=== PATIENT | male | born 1950 | race Caucasian/White ===

== ENCOUNTER 2018-06-22 09:47 | Inpatient (IN) | payer OTHER ==
[~2018-06-22] VITALS: Ht 167.6 cm; Wt 82.4 kg
[~2018-06-22 09:47] MED LIST: HYDACE5 PO; HYDCHL25 PO; LISI20 PO; METO50 PO
[2018-06-22 10:10] LABS: Calcium, Ionized (POC) 1.04 mmol/L (1.10-1.46); Chloride (POC) 121 mmol/L (98-108); Creatinine (POC) 2.1 mg/dL (0.8-1.3); Glucose (ISTAT POC) 90 mg/dL (70-99); Hemoglobin (POC) 12.9 g/dL (13.5-17.5); Potassium (POC) 3.3 mmol/L (3.5-5.5); Sodium (POC) 150 mmol/L (135-148); Total CO2 (POC) 13 mmol/L (21-32)
[2018-06-22 10:17] LABS: Hematocrit 39.7 % (37.0-53.0); Hemoglobin 13.1 g/dL (13.5-17.5); Mean Corpuscular HGB 32.8 pg (26.0-34.0); Mean Corpuscular Volume 100 fL (80-100); Mean Platelet Volume 12.6 fL (9.1-12.4); Platelet Count 74 K/mm3 (150-400); RDW Coefficient Variation 15.9 % (11.7-14.2); RDW Standard Deviation 57.6 fL (35.1-46.3); Red Blood Cell Count 3.99 M/mm3 (4.30-5.90); White Blood Cell Count 7.01 K/mm3 (4.00-11.30)
[2018-06-22 10:38] LABS: Albumin, Blood 2.5 g/dL (3.4-5.0); Albumin/Globulin Ratio 0.6 (0.8-1.8); Bilirubin, Total 1.4 mg/dL (0.1-1.0); Bun/Creatinine Ratio 13.3 (12.0-20.0); Creatinine, Blood 2.11 mg/dL (0.60-1.20); Globulin, Blood 4.4 g/dL (2.2-4.0); Potassium, Blood 3.4 mmol/L (3.5-5.5); Total Protein, Blood 6.9 g/dL (6.4-8.2); Troponin I 0.036 ng/mL (0.000-0.040)
[2018-06-22 10:45] LABS: BAND PERCENT MAN 8 % (0-8); BASOPHILS PERCENT MAN 0 % (0-2); EOSINOPHILS PERCENT MAN 0 % (0-6); LYMPHOCYTES ABSOLUTE MAN 0.49 K/mm3 (0.84-5.20); LYMPHOCYTES PERCENT MAN 7 % (21-46); METAMYELOCYTE ABSOLUTE MAN 0.28 K/mm3 (0.00-0.00); METAMYELOCYTE PERCENT MAN 4 % (0-0); MONOCYTES PERCENT MAN 0 % (4-13); NEUTROPHILS ABSOLUTE MAN 6.23 K/mm3 (1.96-9.15); SEG NEUTROPHILS PERCENT MAN 81 % (41-73); TOTAL CELLS COUNTED 100
[2018-06-22 11:29] LABS: Base Excess Venous -14.8 mmol/L; Bicarbonate Venous 13.8 mmol/L (24.0-30.0); PO2 Venous 45.1 mmHg (38-42); pH Blood Venous 7.25 (7.34-7.37)
[2018-06-22] MEDS ORDERED: ALLO100 PO (11:56)
[2018-06-22 12:49] LABS: Source, Urine Catheter
[2018-06-22] MEDS ORDERED: AMLO5 PO (12:51)
[2018-06-22 13:02] LABS: Bilirubin, Urine Neg (Neg); Blood, Urine 5+ (Neg); Glucose Qualitative, Urine Neg (Neg); Ketones, Urine Neg (Neg); Leukocyte Esterase, Urine 3+ (Neg); Nitrite, Urine Neg (Neg); Protein, Urine 3+ (Neg); Urobilinogen, Urine 2+ (Normal)
[2018-06-22 13:10] LABS: Appearance, Urine Turbid (Clear); Color, Urine Yellow (P-Yellow)
[2018-06-22 13:11] LABS: White Blood Cells, Urine TNTC /hpf (0-5)
[2018-06-22 13:13] LABS: Bacteria Many /hpf; Squamous Epithelial Cells Not Seen /hpf (Few)
--- NOTE | 2018-06-22 17:58 | NUR ---
PATIENT ADMISSION THE PATEINT WAS ADMITTED FROM THE ER TO THE [facility] FLOOR, ROOM #327, AT 1615 TODAY. THE PATIENT WAS ADMITTED FOR SEPSIS, ARRIVED AFTER REPORT WAS CALLED TO THE FLOOR. THE PATIENT PRESENT A&O X3, VITALS WNL AND LUNGS THAT WERE CLEAR, BUT DIM AT THE BASES, THE PATIENT'S ADMISSION WAS COMPLETED, AND THE PATIENT WAS GIVEN A FLU SHOT. THE PATIENT IS EATING AT THIS TIME, WILL CONTINUE TO MONITOR.
[2018-06-22 19:04] LABS: Adenovirus F 40/41 Not Detected (NOT DETECT); Astrovirus Not Detected (NOT DETECT); Campylobacter Sp Not Detected (NOT DETECT); Cryptosporidium Not Detected (NOT DETECT); Cyclospora Cayetanensis Not Detected (NOT DETECT); E. Coli O157 Not Detected (NOT DETECT); Entamoeba Histolytica Not Detected (NOT DETECT); Enteroaggregative E. coli-EAEC Not Detected (NOT DETECT); Enteropathogenic E. coli-EPEC Not Detected (NOT DETECT); Enterotoxigenic E. coli-ETEC Not Detected (NOT DETECT); Giardia Lamblia Not Detected (NOT DETECT); Norovirus GI/GII Not Detected (NOT DETECT); Plesiomonas Shigelloides Not Detected (NOT DETECT); Rotavirus A Not Detected (NOT DETECT); Salmonella Sp Not Detected (NOT DETECT); Sapovirus Not Detected (NOT DETECT); Shiga Toxin-prod E. coli-STEC Not Detected (NOT DETECT); Shigella/Enteroin E. coli-EIEC Not Detected (NOT DETECT); Vibrio Cholerae Not Detected (NOT DETECT); Vibrio Sp Not Detected (NOT DETECT); Yersinia Enterocolitica Not Detected (NOT DETECT)
[2018-06-23 05:13] LABS: Hematocrit 30.2 % (37.0-53.0); Mean Corpuscular HGB 32.5 pg (26.0-34.0); Mean Corpuscular HGB Conc 33.1 g/dL (31.5-36.5); Mean Corpuscular Volume 98 fL (80-100); Platelet Count 63 K/mm3 (150-400); RDW Standard Deviation 57.8 fL (35.1-46.3); Red Blood Cell Count 3.08 M/mm3 (4.30-5.90); White Blood Cell Count 12.51 K/mm3 (4.00-11.30)
[2018-06-23 05:22] LABS: Mean Platelet Volume 13.5 fL (9.1-12.4)
[2018-06-23 05:33] LABS: Anion Gap 11 mmol/L (6-16); Blood Urea Nitrogen 36 mg/dL (8-24); Bun/Creatinine Ratio 16.1 (12.0-20.0); CO2, Blood 16 mmol/L (21-32); Calcium, Blood 7.7 mg/dL (8.5-10.1); Chloride, Blood 117 mmol/L (98-108); Creatinine, Blood 2.23 mg/dL (0.60-1.20); Glomerular Filtration Rate 31 (60-); Glucose, Blood 83 mg/dL (70-99); Potassium, Blood 4.2 mmol/L (3.5-5.5); Sodium, Blood 144 mmol/L (136-145)
[2018-06-23 05:36] LABS: BAND PERCENT MAN 24 % (0-8); BASOPHILS PERCENT MAN 0 % (0-2); EOSINOPHILS PERCENT MAN 0 % (0-6); LYMPHOCYTES ABSOLUTE MAN 1.12 K/mm3 (0.84-5.20); LYMPHOCYTES PERCENT MAN 9 % (21-46); METAMYELOCYTE PERCENT MAN 4 % (0-0); MONOCYTES ABSOLUTE MAN 0.62 K/mm3 (0.16-1.47); MONOCYTES PERCENT MAN 5 % (4-13); MYELOCYTE ABSOLUTE MAN 0.12 K/mm3 (0.00-0.00); MYELOCYTE PERCENT MAN 1 % (0-0); NEUTROPHILS ABSOLUTE MAN 10.13 K/mm3 (1.96-9.15); SEG NEUTROPHILS PERCENT MAN 57 % (41-73); TOTAL CELLS COUNTED 100
--- NOTE | 2018-06-23 06:01 | NUR ---
Rn summary: Patient is alert x2. He does seem to struggle to follow basic instructions to, for example to turn in bed so he can be changed. Pt is difficult to understand, seems to have slurred speech. Pt was found to be positive for C-Diff and is in contact isolation. Pt abdomen is rounded and nontender, with active bowel tones. He has been incontinent of stool and urine x2. Pt groin is red from incontinence. Pt has a red rash eczema like to his left neck from top of shoulder to up over his ear. Pt has had no nausia and denies pain. Pt has received IV fluids and ABX as ordered. Vital signs are stable. Call light in reach, he has not used it tonight, have monitored closely. good.
--- NOTE | 2018-06-23 18:03 | NUR ---
SHIFT SUMMARY THE PATIENT PRESENT THIS AM WITH VITALS WNL, A&O X3 AND WITH LUNGS THAT WERE CLEAR, BUT DIM AT THE BASES. THE PATIENT HAS HAD SEVERAL LOOSE STOOLS TODAY. HE CONTINUES TO TAKE VANCOMYCIN TO FIGHT THE C-DIFF. THE PATIENT HAS BEEN IN BED ALL SHIFT, BUT CONTINUES TO MOVE HIMSELF AROUND. THE PATIENT CAREGIVERS WERE IN TO VISIT TODAY, WILL CONTINUE TO MONITOR.
--- NOTE | 2018-06-24 07:58 | NUR ---
Rn summary: Patient much more alert tonight. Turning well, cooperative. Pt had one loose incontinent stool, incontinent of urine trying to use urinal also. Pt has rested between cares. Bed alarm for safety. Remains in isolation for C-diff. Pt has vision difficulties. Call light in reach.
[2018-06-24 10:49] LABS: Bun/Creatinine Ratio 22.8 (12.0-20.0); Calcium, Blood 7.6 mg/dL (8.5-10.1); Creatinine, Blood 1.93 mg/dL (0.60-1.20); Potassium, Blood 3.4 mmol/L (3.5-5.5)
--- NOTE | 2018-06-24 15:55 | NUR ---
PATIENT ALERT AND ORIENTED. WATCHING TV MOST OF DAY. LOOSE STOOLS SEEM TO HAVE SLOWED DOWN THIS SHIFT. IN ISOLATION FOR C-DIFF. DENIES PAIN. UNLABORED RESPIRATIONS. BED IN LOW POSITION. CALL LIGHT WITHIN REACH. WILL CONTINUE TO MONITOR.
--- NOTE | 2018-06-25 04:55 | NUR ---
VSS, AFEBRILE, A/O, SLEPT WELL. 20G L AC, 18G L WRIST, LR @ 125 ML/HR, INCONT AT TIMES, 1 PA W/FWW, VISION PROBLEMS, ECZEMA,
[2018-06-25 05:44] LABS: Hematocrit 28.1 % (37.0-53.0); Hemoglobin 9.4 g/dL (13.5-17.5); Mean Corpuscular HGB 32.3 pg (26.0-34.0); Mean Corpuscular HGB Conc 33.5 g/dL (31.5-36.5); Mean Corpuscular Volume 97 fL (80-100); Platelet Count 58 K/mm3 (150-400); RDW Coefficient Variation 16.1 % (11.7-14.2); RDW Standard Deviation 56.7 fL (35.1-46.3); Red Blood Cell Count 2.91 M/mm3 (4.30-5.90); White Blood Cell Count 5.58 K/mm3 (4.00-11.30)
[2018-06-25 05:50] LABS: Mean Platelet Volume 13.1 fL (9.1-12.4)
[2018-06-25 06:09] LABS: Bun/Creatinine Ratio 23.4 (12.0-20.0); Calcium, Blood 7.6 mg/dL (8.5-10.1); Creatinine, Blood 1.58 mg/dL (0.60-1.20); Potassium, Blood 3.6 mmol/L (3.5-5.5)
[2018-06-25 06:13] LABS: BAND PERCENT MAN 2 % (0-8); BASOPHILS PERCENT MAN 0 % (0-2); EOSINOPHILS ABSOLUTE MAN 0.33 K/mm3 (0.00-0.68); EOSINOPHILS PERCENT MAN 6 % (0-6); LYMPHOCYTES ABSOLUTE MAN 1.56 K/mm3 (0.84-5.20); LYMPHOCYTES PERCENT MAN 28 % (21-46); MONOCYTES ABSOLUTE MAN 0.11 K/mm3 (0.16-1.47); MONOCYTES PERCENT MAN 2 % (4-13); NEUTROPHILS ABSOLUTE MAN 3.57 K/mm3 (1.96-9.15); SEG NEUTROPHILS PERCENT MAN 62 % (41-73); TOTAL CELLS COUNTED 100
--- NOTE | 2018-06-25 09:51 | NUR ---
TALKED TO ABOUT P.T. EVAL. OK TO ORDER.
--- NOTE | 2018-06-25 19:05 | NUR ---
PATIENT ALERT AND ORIENTED. MAX 2 PERSON ASSIST TO LIFT. UNLABORED RESPIRATIONS. B.M'S DECREASED ON THIS SHIFT. GOOD APPETITE WITH PATIENT EATTING ITEMS BROUGHT IN BY FRIENDS. IV PATENT. BED IN LOW POSITION. CALL LIGHT WITHIN REACH. REPORT TO NIGHT RN
--- NOTE | 2018-06-26 05:11 | NUR ---
VSS, AFEBRILE, A/O BUT CONFUSED AT TIMES, INCONT, 18G L WRIST, HEAVY 2PA TO STAND, VERY WEAK - SAFER TO USE THE LIFT, ORAL VANCO FOR C-DIFF, LR @ 25 ML/HR. PMHX: FOUDN DOWN, CABG, VISION ISSUES, ECZEMA. PLEASANT AND COOPERATIVE
[2018-06-26 05:18] LABS: BASOPHILS ABSOLUTE AUTO 0.02 K/mm3 (0.00-0.23); BASOPHILS PERCENT AUTO 0 % (0-2); EOSINOPHILS ABSOLUTE AUTO 0.29 K/mm3 (0.00-0.68); EOSINOPHILS PERCENT AUTO 6 % (0-6); Hematocrit 26.7 % (37.0-53.0); Hemoglobin 8.8 g/dL (13.5-17.5); IMMATURE GRAN ABSOLUTE AUTO 0.04 K/mm3 (0.00-0.10); IMMATURE GRAN PERCENT AUTO 1 % (0-1); LYMPHOCYTES ABSOLUTE AUTO 1.36 K/mm3 (0.84-5.20); LYMPHOCYTES PERCENT AUTO 28 % (21-46); MONOCYTES ABSOLUTE AUTO 0.53 K/mm3 (0.16-1.47); MONOCYTES PERCENT AUTO 11 % (4-13); Mean Corpuscular HGB 32.1 pg (26.0-34.0); Mean Corpuscular Volume 97 fL (80-100); Mean Platelet Volume 12.3 fL (9.1-12.4); NEUTROPHILS ABSOLUTE AUTO 2.62 K/mm3 (1.96-9.15); NEUTROPHILS PERCENT AUTO 54 % (41-73); Platelet Count 67 K/mm3 (150-400); RDW Coefficient Variation 16.1 % (11.7-14.2); RDW Standard Deviation 57.5 fL (35.1-46.3); Red Blood Cell Count 2.74 M/mm3 (4.30-5.90); White Blood Cell Count 4.86 K/mm3 (4.00-11.30)
[2018-06-26 05:48] LABS: Bun/Creatinine Ratio 22.9 (12.0-20.0); Calcium, Blood 7.6 mg/dL (8.5-10.1); Creatinine, Blood 1.31 mg/dL (0.60-1.20); Potassium, Blood 3.6 mmol/L (3.5-5.5)
--- NOTE | 2018-06-26 18:20 | NUR ---
PT AO AND COOPERATIVE OF CARE. WAS ABLE TO BE UP IN HIS CHAIR TODAY, AND WAS A HEAVY TWO PERSON TRANSFER BACK TO BED. PT RESTING IN BED AT THIS TIME NO DISTRESS NOTED.
--- NOTE | 2018-06-27 05:29 | NUR ---
VSS, AFEBRILE, A/O BUT CONFUSED AT TIMES, 18G L WRIST, LR @ 125 ML/HR, INCONT OF B/B, ORAL VANCO FOR C-DIFF, STOOLS ARE SOFT BUT FORMED, 2 PA OR USE LIFT, PT'S LEGS ARE VERY WEAK, PMHX: FOUND DOWN, CABG, VISION PROBLEMS, ECZEMA. PLACEMENT ISSUES
--- NOTE | 2018-06-27 17:20 | NUR ---
SHIFT SUMMARY PT ALEXIS, AYESHAO X4 THOUGH CONFUSED AT TIMES. PT TEMP 99.4-99.6 TODAY. PT REFUSED TYLENOL. NO OTHER CHANGES THIS SHIFT. NURSE CALLED CAREGIVER TO UPDATE HER THAT PER IRONER MACHINE NOTE, PT CANNOT BE TRANSFERRED TO SNF UNTIL 72 HOURS AFTER LOOSE STOOL. PT ALSO AWARE. PT REFUSED PHYSICAL THERAPY, SEE NOTE. BED IN LOW POSITION, CALL LIGHT WITHIN REACH.
--- NOTE | 2018-06-28 02:34 | NUR ---
SHIFT SUMMARY PT RESTING QUIETLY HF AT START OF SHIFT; WATCHING TV. INCONTINENT OF BOWEL AND BLADDER. PT CLEANED AND CHANGED. REPOSITIONED. IN CONTACT ISO FOR C-DIFF. PT ADMITTED FOR SEPSIS AND METABOLIC ACIDOSIS; RESOLVED. WAITING TO BE D/C'D TO REHAB WHEN STOOLS REMAIN FORMED FOR 72 HRS. PER REPORT, PT W/C BOUND R/T DECONDITIONING. FOUND DOWN AT HOME. CONFUSED AT TIMES. HX OF HTN, CABG, AND VISION LOSS. PT HAS BEEN PLEASANT AND CO-OP WITH CARE. DENIED FURTHER NEEDS. CALL LT IN REACH. ABLE TO MAKE NEEDS KNOWN.
[2018-06-28 05:43] LABS: Anion Gap 7 mmol/L (6-16); Blood Urea Nitrogen 22 mg/dL (8-24); Bun/Creatinine Ratio 20.4 (12.0-20.0); CO2, Blood 19 mmol/L (21-32); Calcium, Blood 7.3 mg/dL (8.5-10.1); Chloride, Blood 119 mmol/L (98-108); Creatinine, Blood 1.08 mg/dL (0.60-1.20); Glomerular Filtration Rate >60 (60-); Glucose, Blood 108 mg/dL (70-99); Potassium, Blood 3.5 mmol/L (3.5-5.5); Sodium, Blood 145 mmol/L (136-145)
--- NOTE | 2018-06-28 17:17 | NUR ---
SHIFT SUMMARY PT AXO, PLEASANT AND COOPERATIVE WITH CARE. PT'S BMS ARE PASTY. PT CONTINUES TO BE INCONTINENT OF BOWEL AND BLADDER. IV PATENT AND SALINE LOCKED. PT HAS SEVERE SWELLING IN HIS ABDOMEN AND 3+ EDEMA TO BLE. DR MANZANARES AWARE. VSS, NO ACUTE CHANGES THIS SHIFT. PT COMPLAINS OF BILATERAL ANKLE PAIN BUT REFUSES PAIN MEDICATION. PT DENIES SOB AND NV. BED IN LOW POSITION, CALL LIGHT WITHIN REACH. SIT TO STAND LIFT USED TO MOVE PT INTO SHOWER THIS SHIFT.
--- NOTE | 2018-06-29 03:48 | NUR ---
SHIFT SUMMARY PT RESTING QUIETLY, WATCHING TV AT START OF SHIFT. PLEASANT. HAD ATTEMPTED TO USE URINAL IN BED, BUT HAS DIFFICULTY WITH ATTENDS AND SPILLING ON BED LINENS. PT CLEANED AND CHANGED. YEAST IN DELORIS AREA AND INNER THIGHS WAS NOTICEABLY MUCH WORSE TONIGHT, THAN LAST NIGHT. DR LAWRENCE NOTIFIED FOR NYSTATIN CREAM. WHEN OBTAINED FROM PHARMACY, PT WAS CLEANED AGAIN AND MEDICATION APPLIED. NO BM'S TO PRESENT THIS SHIFT. BLE'S VERY SWOLLEN WITH SM AMT REDNESS TO RLE. PT VERY WEAK AND DECONDITIONED, ESPECIALLY LE'S. NO FURTHER CHANGES TO PRESENT THIS SHIFT. CALL LT IN REACH.
[2018-06-29 06:20] LABS: Anion Gap 9 mmol/L (6-16); Blood Urea Nitrogen 22 mg/dL (8-24); Bun/Creatinine Ratio 17.9 (12.0-20.0); CO2, Blood 20 mmol/L (21-32); Calcium, Blood 7.4 mg/dL (8.5-10.1); Chloride, Blood 116 mmol/L (98-108); Creatinine, Blood 1.23 mg/dL (0.60-1.20); Glomerular Filtration Rate >60 (60-); Glucose, Blood 100 mg/dL (70-99); Potassium, Blood 3.4 mmol/L (3.5-5.5); Sodium, Blood 145 mmol/L (136-145)
--- NOTE | 2018-06-29 19:08 | NUR ---
NO ACUTE CHANGES THIS SHIFT. PATIENT USING BEDPAN AND URINAL. IMMODIUM AVAILABLE FOR LOOSE STOOL. CALL LIGHT IN REACH, PATIENT CALLS APPROPRIATELY
[2018-06-30 05:34] LABS: Anion Gap 10 mmol/L (6-16); Blood Urea Nitrogen 23 mg/dL (8-24); CO2, Blood 19 mmol/L (21-32); Calcium, Blood 7.3 mg/dL (8.5-10.1); Chloride, Blood 115 mmol/L (98-108); Creatinine, Blood 1.21 mg/dL (0.60-1.20); Glomerular Filtration Rate >60 (60-); Glucose, Blood 101 mg/dL (70-99); Potassium, Blood 3.3 mmol/L (3.5-5.5); Sodium, Blood 144 mmol/L (136-145)
--- NOTE | 2018-06-30 06:17 | NUR ---
ALTERATIONS TAILOR SUMMARY PT AAOX3 COOPERATIVE WITH CARE, DENIES PAIN, N/V, SOB, TAKING PO VANCO. NO ACUTE DISTRESS. SLEPT MOST OF NIGHT. USES URINAL IN BED, VITAL SIGNS STABLE. WILL CONTINUE TO MONITOR.
--- NOTE | 2018-06-30 17:54 | NUR ---
PATIENT GIVEN IMMODIUM THIS SHIFT PER PATIENT REQUEST. EATING WELL. BOWEL MOVEMENTS ARE SOFT FORMED. PATIENT REFUSED TO TAKE SECOND DOSE OF POTASSIUM. CALLS APPROPRIATELY. WILL CONTINUE TO MONITOR
--- NOTE | 2018-07-01 03:50 | NUR ---
SUMMARY NO ACUTE CHANGES NOTED THROUGH THE NIGHT. PT REMAINS A&O X4, ON BEDREST. HE HAS SLEPT WITH NO PROBLEMS. PO VANCO GIVEN PER EMAR. PT DENIES PAIN. NO STOOLS NOTED. VSS. CALL LIGHT IN REACH, WCTM AT THIS TIME
[2018-07-01 05:17] LABS: Anion Gap 9 mmol/L (6-16); Blood Urea Nitrogen 24 mg/dL (8-24); Bun/Creatinine Ratio 19.2 (12.0-20.0); CO2, Blood 19 mmol/L (21-32); Calcium, Blood 7.3 mg/dL (8.5-10.1); Chloride, Blood 118 mmol/L (98-108); Creatinine, Blood 1.25 mg/dL (0.60-1.20); Glomerular Filtration Rate >60 (60-); Glucose, Blood 114 mg/dL (70-99); Potassium, Blood 3.5 mmol/L (3.5-5.5); Sodium, Blood 146 mmol/L (136-145)
[2018-07-01] MEDS ORDERED: Acetaminophen325 M1 PO (11:39)
[2018-07-01] MEDS ORDERED: VANC125 PO (11:40)
[2018-07-01] MEDS ORDERED: POLY500 PO (11:40)
[2018-07-01] MEDS ORDERED: SACC250C PO (11:42)
[2018-07-01] MEDS ORDERED: Oyster Shell C500 MG PO (11:42)
--- NOTE | 2018-07-01 17:09 | NUR ---
PT DISCHARGED PT VERBALIZED UNDERSTANDING OF THE DC INSTRUCTIONS, PTS RADIOLOGY MANAGER AND THE PT WERE ANGRY WITH THE HOSPITAL STAFF AT DISCHARGE THE DC PLAN WAS CHANGED FROM FACILITY TO HOME, [facility] THE PHARMACY THERE ACKNOWLEDGED THAT THE PT WOULD BE ABLE TO PICK HIS PERSCIPTION UP TONIGHT, THE PT WAS TAKEN OUT VIA WHEELCHAIR TO THE [facility] THE RADIOLOGY MANAGER TOLD THE TICKER MAINTAINER THAT SHE WOULD TAKE THE PT OUT SO THAT WE WOULDNT BE PUT OUT, FOR NO REASON AT ALL, THE PT APPEARED TO BE BREATHING EASILY AT DISCHARGE, A 2 PERSON ASSIST UP TO THE WHEELCHAIR
== END 2018-07-01 17:05 | disposition home or self-care (01) | DRG 871 ==
LOC: ER 09:47 → ERHOLD 12:47 → MEDS 12:47 → ENPENDDIS 07-01 10:57 → MEDS 07-01 17:05
PROVIDERS: Emergency Medicine; ADMIT Hospitalist
DX: A41.9 Sepsis, unspecified organism (principal); G93.41 Metabolic encephalopathy; A04.72 Enterocolitis due to Clostridium difficile, not specified as recurrent; E87.1 Hypo-osmolality and hyponatremia; E87.2 Acidosis; I10 Essential (primary) hypertension; R19.7 Diarrhea, unspecified; A41.89 Other specified sepsis; R65.20 Severe sepsis without septic shock; N28.9 Disorder of kidney and ureter, unspecified
CPT/HCPCS: 36415; 36416; 51701; 70450; 71045; 80047; 80048; 80053; 80202; 81001; 82330; 82803; 83605; 84484; 85014; 85025; 87040; 87077; 87086; 87186; 87507; 90686; 93005; 93010; 96367; 96375; 97110; 97162; 97530; 99285-25; J1940; J2543; J3370; J7120

== ENCOUNTER 2020-02-05 10:15 | Inpatient (IN) | payer OTHER, MEDICARE ==
[~2020-02-05] VITALS: Ht 175.3 cm; Wt 67.1 kg
[~2020-02-05 10:15] MED LIST changes: +AMLO5 PO; -METO50 PO; +Oyster Shell C500 MG PO; +POLY500 PO; +VANC125 PO
[2020-02-05 11:12] LABS: BASOPHILS ABSOLUTE AUTO 0.05 K/mm3 (0.00-0.23); BASOPHILS PERCENT AUTO 1 % (0-2); EOSINOPHILS ABSOLUTE AUTO 0.35 K/mm3 (0.00-0.68); EOSINOPHILS PERCENT AUTO 6 % (0-6); Hematocrit 38.2 % (37.0-53.0); Hemoglobin 11.7 g/dL (13.5-17.5); IMMATURE GRAN ABSOLUTE AUTO 0.02 K/mm3 (0.00-0.10); IMMATURE GRAN PERCENT AUTO 0 % (0-1); LYMPHOCYTES ABSOLUTE AUTO 1.45 K/mm3 (0.84-5.20); LYMPHOCYTES PERCENT AUTO 26 % (21-46); MONOCYTES ABSOLUTE AUTO 0.47 K/mm3 (0.16-1.47); MONOCYTES PERCENT AUTO 8 % (4-13); Mean Corpuscular HGB 30.5 pg (26.0-34.0); Mean Corpuscular HGB Conc 30.6 g/dL (31.5-36.5); Mean Corpuscular Volume 100 fL (80-100); Mean Platelet Volume 10.4 fL (9.1-12.4); NEUTROPHILS ABSOLUTE AUTO 3.31 K/mm3 (1.96-9.15); NEUTROPHILS PERCENT AUTO 59 % (41-73); Platelet Count 162 K/mm3 (150-400); RDW Standard Deviation 50.5 fL (35.1-46.3); Red Blood Cell Count 3.84 M/mm3 (4.30-5.90); White Blood Cell Count 5.65 K/mm3 (4.00-11.30)
[2020-02-05 11:33] LABS: Albumin, Blood 2.7 g/dL (3.4-5.0); Albumin/Globulin Ratio 0.5 (0.8-1.8); Bilirubin, Total 0.7 mg/dL (0.1-1.0); Bun/Creatinine Ratio 25.8 (12.0-20.0); Calcium, Blood 8.9 mg/dL (8.5-10.1); Creatinine, Blood 1.59 mg/dL (0.60-1.20); Globulin, Blood 5.2 g/dL (2.2-4.0); Potassium, Blood 3.7 mmol/L (3.5-5.5); Total Protein, Blood 7.9 g/dL (6.4-8.2)
[2020-02-05] MEDS ORDERED: METO50ER PO (13:52)
[2020-02-05] MEDS ORDERED: ALLO100 PO (13:53)
[2020-02-05] MEDS ORDERED: Acetaminophen325 M1 PO (13:53)
[2020-02-05] MEDS ORDERED: LOSARTAN POTAS100 M1 PO (13:54)
[2020-02-05] MEDS ORDERED: MELA3 PO (13:55)
[2020-02-05] MEDS ORDERED: AMLO5 PO (13:55)
[2020-02-05] MEDS ORDERED: Vitamin D2000 UNIT PO (13:56)
[2020-02-05] MEDS ORDERED: Vitamin B-121000 MCG PO (13:56)
[2020-02-05] MEDS ORDERED: DOCU100 PO (13:57)
[2020-02-05] MEDS ORDERED: FOLI1 PO (13:57)
[2020-02-05] MEDS ORDERED: HYDCHL25 PO (13:58)
[2020-02-05] MEDS ORDERED: RIFA550T2 PO (13:59)
[2020-02-05] MEDS ORDERED: LACT PO (13:59)
[2020-02-05] MEDS ORDERED: B-1100 M1 PO (14:00)
[2020-02-05] MEDS ORDERED: ZINC220 PO (14:00)
[2020-02-05] MEDS ORDERED: TAMS.4ER PO (14:00)
[2020-02-05] MEDS ORDERED: SENN187 PO (14:01)
[2020-02-05] MEDS ORDERED: CALCITRATE200 M1 PO (14:04)
--- NOTE | 2020-02-05 18:03 | NUR ---
ADMISSION PT ADMITED TO UNIT AT APROX 1644 FROM ER. PT SMELLS OF URINE, GIVEN BED BATH BY STAFF. PT HAS WOUNDS/SORES TO L BUTTOCK-PICTURES TAKEN AND IN CHART. PT'S LEGS DRAWN UP TO CHEST, SOME SWELLING TO L HIP. ORTHO CONSULT CALLED BY ER MD. PLAN FOR NPO MIDNIGHT AND OR TOMORROW.
--- NOTE | 2020-02-06 04:38 | NUR ---
PATIENT HAS SLEPT MOST OF THE NIGHT. HE ASKED FOR AND RECEIVED PAIN MEDICATION ONCE, WITH GOOD PAIN CONTROL. HE WAKES ORIENTED AND COOPERATIVE WITH ALL CARE. RT LEG WITH HIP AND KNEE CONTRACTURES. HE STATES THAT HE HAS NOT BEEN ABLE TO STRIAGHTEN THAT LEG IN A LONG TIME. NPO AFTER MIDNIGHT EXCEPT FOR SIPS OF H2O WITH MEDICATIONS. CALL LIGHT WITHIN REACH, ENSURED PATIENT UNDERSTANDS THE BUTTON TO PUSH FOR HELP.
[2020-02-06 04:47] LABS: International Normalized Ratio 1.04; Prothrombin Time Results 11.1 Sec (9.7-11.5)
[2020-02-06 04:53] LABS: Bun/Creatinine Ratio 25.5 (12.0-20.0); Calcium, Blood 8.5 mg/dL (8.5-10.1); Creatinine, Blood 1.49 mg/dL (0.60-1.20); Potassium, Blood 3.4 mmol/L (3.5-5.5)
--- NOTE | 2020-02-06 13:33 | NUR ---
PATIENT TO DAY SURGERY AT THIS TIME. SPOKE WITH PATIENT'S PCP, MAGGIE NATION AT [facility] TODAY AND GAINED SOME INSIGHT ON PATIENT'S HX. PATIENT HAS BEEN DEEMED TO HAVE LEGAL CAPACITY TO MAKE DECISIONS RE: HIS LIVING ARRANGEMENTS AND CARE. HE HAS REFUSED TO RESIDE IN A FACILITY OR FOSTER HOME. SPOKE WITH MILTON GUNTER RE: D/C PLAN.
--- NOTE | 2020-02-06 14:07 | NUR ---
History, Chart, Medications and Allergies reviewed before start of procedure. Lungs clear T/O to Auscultation. Patient confirms NPO status and agrees with scheduled surgery. Pre-Op teaching done. Pt verbalizes understanding.
--- NOTE | 2020-02-06 16:15 | NUR ---
PATIENT RETURNED TO ROOM FROM PACU. AWAKE, ORIENTED. DENIES PAIN, NAUSEA, CP, SOB. VSS. R HIP WITH AQUACEL DRESSINGS X 3, D&I; CIRC CHECKS WNL. WIGGLES TOES. LS DECREASED LLL, OTHERWISE CLEAR. ON RA. HRR. CONT TO MONITOR.
--- NOTE | 2020-02-06 18:50 | NUR ---
PATIENT TOLERATED DINNER, APPETITE GOOD. VSS. PO PAIN AUTO BODY SHOP MANAGER. DRESSINGS D&I, DENIES N/T. WILL REPORT TO AYANA BAÑUELOS.
--- NOTE | 2020-02-07 04:03 | NUR ---
PATIENT MEDICATION WITH PO NARCOTICS FOR PAIN IN HIS RT ANKLE/FOOT. VERY PLEASANT, EATING AND DRINKING WELL. USING CALL LIGHT APPROPRIATELY.
[2020-02-07 05:00] LABS: Hematocrit 27.9 % (37.0-53.0); Hemoglobin 9.4 g/dL (13.5-17.5); Mean Corpuscular HGB 30.8 pg (26.0-34.0); Mean Corpuscular HGB Conc 33.7 g/dL (31.5-36.5); Mean Platelet Volume 11.3 fL (9.1-12.4); Platelet Count 164 K/mm3 (150-400); RDW Coefficient Variation 13.5 % (11.7-14.2); Red Blood Cell Count 3.05 M/mm3 (4.30-5.90)
[2020-02-07 05:01] LABS: Mean Corpuscular Volume 92 fL (80-100)
--- NOTE | 2020-02-07 05:08 | NUR ---
PATIENT HAS BEEN AWAKE FOR A FEW HOURS, NEEDS HELP CHANGING THE CHANNEL TO THE ONE HE WANTS TO WATCH. HE IS NO LONGER HAVING ANY PAIN IN HIS RT FOOT. BOTH HEALS HAVE BEEN FLOATED ALL SHIFT. NO ACUTE CHANGES. MOST PROXIMAL AQUACEL HAS SMALL SANGUINOUS AMOUNT OF DRAINAGE.
[2020-02-07 05:32] LABS: Albumin, Blood 2.2 g/dL (3.4-5.0); Anion Gap 7 mmol/L (6-16); Blood Urea Nitrogen 39 mg/dL (8-24); Bun/Creatinine Ratio 23.4 (12.0-20.0); CO2, Blood 23 mmol/L (21-32); Calcium, Blood 8.2 mg/dL (8.5-10.1); Chloride, Blood 112 mmol/L (98-108); Creatinine, Blood 1.67 mg/dL (0.60-1.20); Glomerular Filtration Rate 43 (60-); Glucose, Blood 180 mg/dL (70-99); Phosphorus, Blood 1.9 mg/dL (2.5-4.9); Potassium, Blood 4.2 mmol/L (3.5-5.5); Sodium, Blood 142 mmol/L (136-145)
--- NOTE | 2020-02-07 18:46 | NUR ---
SHIFT SUMMARY PT HAD A R HIP REPAIR. PAIN HAS BEEN MANAGED WITH NORCO. PT WORKED WITH THERAPY, HE WAS A 2 PERSON MAX ASSIST WITH TRANSFERS THIS EVENING. PT IS WHEELCHAIR BOUND AT BASELINE; ALTHOUGH HE IS A POOR HISTORIAN AND IS UNABLE TO TELL WHY HE IS WHEELCHAIR BOUND. PT HAS AND ABRASION AND POSSIBLE PRESSURE INJURY TO HIS L HIP. HE HAS A SECOND PRESSURE INJURY TO HIS LEFT HIP, ALLYVEN DRESSINGS CHANGED OVER BOTH PRESSURE INJURIES. VSS. WILL MONITOR UNTIL REPORT TO ONCOMING RN.
--- NOTE | 2020-02-08 05:22 | NUR ---
SHIFT SUMMARY POD2 R FEM NECK FX, BP ELEVATED, GAVE PRN HYDRALAZINE PER EMAR WHICH HELPED LOWER BP. PT BED BOUND, REPORTS BEING UNABLE TO WALK AND USING WHEELCHAIR AT BASELINE. DENIES PAIN, USES CALL LIGHT APPROPRIATLEY BUT SOMETIMES BUMPS CALL BUTTON ACCIDENTLY. CONNOLLY IN PLACE DRAINING YELLOW URINE W/ SCANT AMT OF SEDIMENT, NO NOTED KIDNEY HX. HYDROCELL DRESSING INTACT W/ SCANT DRAINAGE ON RIGHT HIP, 2 DRESSING ON L HIP FOR PRESSURE INJURIES PRESENT ON ADMIT PER REPORT. TOLERATES PO, SWALLOWS MEDICATIONS W/O DIFFICULTY. WILL CONTINUE TO MONITOR AND REPORT TO ONCOMING DAY RN.
[2020-02-08 09:53] LABS: Albumin, Blood 2.2 g/dL (3.4-5.0); Anion Gap 8 mmol/L (6-16); Blood Urea Nitrogen 30 mg/dL (8-24); Bun/Creatinine Ratio 22.4 (12.0-20.0); CO2, Blood 22 mmol/L (21-32); Calcium, Blood 7.9 mg/dL (8.5-10.1); Chloride, Blood 115 mmol/L (98-108); Creatinine, Blood 1.34 mg/dL (0.60-1.20); Glomerular Filtration Rate 56 (60-); Glucose, Blood 112 mg/dL (70-99); Phosphorus, Blood 2.4 mg/dL (2.5-4.9); Potassium, Blood 3.6 mmol/L (3.5-5.5); Sodium, Blood 145 mmol/L (136-145)
[2020-02-08] MEDS ORDERED: GUAI600T33 PO (10:14)
--- NOTE | 2020-02-08 15:43 | NUR ---
BRITT ZIMMER CONTACTED FOR DVT PROPHYLAXIS ORDERS. PT HAS JONATAN ARAIZA AND SCD'S. BRITT ORDERED ASPIRIN FOR CHEMICAL PROPHYLAXIS.
--- NOTE | 2020-02-08 15:56 | NUR ---
SHIFT SUMMARY PT IS POD #2 FROM A R HIP PINNING WITH DR. GARCÍA. HIS PAIN IS MANAGED WITH NORCO. SOME OF PT'S HOME MEDICATIONS WERE RESTARTED PER DR. HILL. PT'S CONNOLLY CATHETER WAS REMOVED THIS AFTERNOON, AWAITING VOID. VSS. WILL CONTINUE TO MONITOR.
[2020-02-09 04:58] LABS: Albumin, Blood 2.3 g/dL (3.4-5.0); Anion Gap 6 mmol/L (6-16); Blood Urea Nitrogen 29 mg/dL (8-24); Bun/Creatinine Ratio 21.2 (12.0-20.0); CO2, Blood 26 mmol/L (21-32); Calcium, Blood 8.1 mg/dL (8.5-10.1); Chloride, Blood 113 mmol/L (98-108); Creatinine, Blood 1.37 mg/dL (0.60-1.20); Glomerular Filtration Rate 54 (60-); Glucose, Blood 100 mg/dL (70-99); Phosphorus, Blood 2.7 mg/dL (2.5-4.9); Potassium, Blood 4.3 mmol/L (3.5-5.5); Sodium, Blood 145 mmol/L (136-145)
--- NOTE | 2020-02-09 06:21 | NUR ---
SHIFT SUMMARY LYING IN SEMI FOWLERS WITH EYES OPEN. AAO X3 WITH OCCASIONAL CONFUSION NOTED. URINE ADEQUATE. PARTIAL BATH AND LINEN CHANGE COMPLETED AFTER INCONTINENT VOID, TOLERATED WELL. DENIES FURTHER NEEDS OR WANTS AT THIS TIME. SAFETY MEASURES IN PLACE. WILL CONTINUE TO MONITOR AND GIVE HAND OFF TO ONCOMING SHIFT USING SBAR DURING BEDSIDE REPORT.
--- NOTE | 2020-02-09 16:30 | NUR ---
THERAPY RECENTLY WORKING WITH PT.
--- NOTE | 2020-02-09 16:47 | NUR ---
SHIFT SUMMARY PT BEEN EATING AND DRINKING, VOIDING. PT HAD BM TODAY. PT WORKED WITH THERAPY. DR BEEN TO SEE PT. ALARM IN PLACE. PT BEEN ASSISTED WITH ADL'S PRN. PT BEEN CLEANED UP TODAY, MEPILEX DRESSINGS CHANGED. TEST BORER HELPER ASSISTING WITH PLACEMENT.
--- NOTE | 2020-02-09 18:22 | NUR ---
DR AWARE OF PT NOT ABLE TO GO TO SNF TODAY. OILING MACHINE OPERATOR BEEN ASSISTING WITH CARE.
--- NOTE | 2020-02-10 05:46 | NUR ---
SHIFT SUMMARY POD 4 S/P LEFT HIP NAILING, AQUACEL APPEARS CDI. PAIN MANAGED WITH REPOSITIONING, ICE, AND PO MEDICATIONS PER EMAR. DRESSING TO RIGHT HIP IS C/D/I. PT APPEARS TO BE CHARO ADA DIET. IS VOIDING, ATTENDS CHANGED PER EMAR. NO ACUTE CHANGES THIS SHIFT. WILL CONT TO MONITOR AND GIVE REPORT TO ONCOMING REdyN.
--- NOTE | 2020-02-10 11:04 | NUR ---
OT HERE TO WORK WITH PT.
--- NOTE | 2020-02-10 17:00 | NUR ---
SHIFT SUMMARY PT EATING AND DRINKING, VOIDING. PT WORKED WITH THERAPY TODAY. PT UP TO CHAIR TODAY WITH TAB ALARM IN PLACE. PT USING CALL LIGHT. PT BEEN ASSISTED WITH ADL'S PRN. PT BEEN MED ORDERED AND PRN. DEMETRIUS NAAYK BEEN TO SEE PT AND TALKED WITH BELT NOTCHER EARLIER TODAY.
--- NOTE | 2020-02-10 18:32 | NUR ---
PT BACK TO BED WITH MULT ASSIST, ALARM IN PLACE. PT REPORTS COMF WHEN BACK TO BED.
--- NOTE | 2020-02-11 06:00 | NUR ---
SHIFT SUMMARY NO ACUTE CHANGES THIS SHIFT. AQUACEL DRESSINGS TO RIGHT HIP C/D/I. MEPILEX TO LEFT HIP CDI. PT MEDICATED 2X FOR PAIN WITH 1 TAB. REPOSITIONED CHARO, PT ABLE TO REPOSITION SELF SOME IN BED. REQUIRES FREQUENT HIP PRECAUTION REMINDERS. USES URINAL BUT HAS "ACCIDENTS" WITH USING IT AT TIMES. FULL BED BATH AND LINEN CHANGE TONIGHT. PT CURRENTLY WATCHING TV IN BED WITH CALL LIGHT IN REACH. WILL CONT TO MONITOR PT FOR CHANGES. PLAN TO WORK WITH THERAPY. WILL CONT TO MONITOR AND GIVE REPORT TO ONCOMING RN.
--- NOTE | 2020-02-11 17:55 | NUR ---
SUMMARY PT HAS BEEN SITTING IN CHAIR MUCH OF SHIFT. PT CALM, COOPERATIVE. MEDICATED X1 FOR RIGHT HIP PAIN AND REPORTS PAIN IS IN TOLERABLE AVRIL FROM [facility] IN TO SEE PATIENT AND TELLS ME SHE AND THE PATIENT CALLED DETROIT SOCIAL SECURITY OFFICE AND HAVE BEEN IN CONTACT WITH PERSON TO ASSIST WITH MEDICARE PAPERWORK.
--- NOTE | 2020-02-12 05:34 | NUR ---
SHIFT SUMMARY POD 6 R HIP PINNING AA04, COOPERATIVE WITH CARE TODAY. MEDICATED FOR PAIN ONCE PT STATED RELIEF. PT REPOSITIONING IN BED WITH SOME ASSISTANCE. TOLERATING PO. DRESSING CDI. PT CURRENTLTY AWAITING PLACEMENT.
[2020-02-12 05:35] LABS: Albumin, Blood 2.3 g/dL (3.4-5.0); Anion Gap 6 mmol/L (6-16); Blood Urea Nitrogen 27 mg/dL (8-24); Bun/Creatinine Ratio 20.8 (12.0-20.0); CO2, Blood 25 mmol/L (21-32); Calcium, Blood 8.5 mg/dL (8.5-10.1); Chloride, Blood 113 mmol/L (98-108); Glomerular Filtration Rate 58 (60-); Glucose, Blood 96 mg/dL (70-99); Phosphorus, Blood 3.1 mg/dL (2.5-4.9); Potassium, Blood 4.3 mmol/L (3.5-5.5); Sodium, Blood 144 mmol/L (136-145)
--- NOTE | 2020-02-12 16:39 | NUR ---
NOTIFIED DR BURTON THAT PATIENT HAS REFUSED LACTULOSE X 3 DAYS. NO NEW ORDERS.
--- NOTE | 2020-02-12 17:57 | NUR ---
SHIFT SUMMARY PATIENT W/O CHANGES THIS SHIFT. UP TO CHAIR W/STAND AND PIVOT (2 PERSON ASSIST.) NOW BACK TO BED. DRESSING TO R HIP CHANGED. DRESSINGS TO BUTTOCKS CHANGED EARLIER IN SHIFT. PAIN BAGGAGEMASTER THIS AM, HAS DENIED NEED FOR PAIN MED THIS AFTERNOON. SPOKE WITH PCP FROM [facility], GAVE UPDATE.
--- NOTE | 2020-02-13 04:36 | NUR ---
SHIFT SUMMARY POD 7 R HIP REPAIR. AA0X4. PT COOPERATIVE WITH CARE. REPOSITIONS WELL AND HELPS WITH ROLLING. MEDICATED FOR PAIN X1. DRESSINGS CDI. PLAN IS TO CONTINUE AWAITING PLACEMENT.
[2020-02-13 04:47] LABS: BASOPHILS ABSOLUTE AUTO 0.02 K/mm3 (0.00-0.23); BASOPHILS PERCENT AUTO 0 % (0-2); EOSINOPHILS PERCENT AUTO 6 % (0-6); Hematocrit 28.9 % (37.0-53.0); Hemoglobin 9.4 g/dL (13.5-17.5); IMMATURE GRAN ABSOLUTE AUTO 0.03 K/mm3 (0.00-0.10); IMMATURE GRAN PERCENT AUTO 1 % (0-1); LYMPHOCYTES ABSOLUTE AUTO 1.51 K/mm3 (0.84-5.20); LYMPHOCYTES PERCENT AUTO 30 % (21-46); MONOCYTES ABSOLUTE AUTO 0.55 K/mm3 (0.16-1.47); MONOCYTES PERCENT AUTO 11 % (4-13); Mean Corpuscular HGB 30.1 pg (26.0-34.0); Mean Corpuscular HGB Conc 32.5 g/dL (31.5-36.5); Mean Corpuscular Volume 93 fL (80-100); Mean Platelet Volume 10.6 fL (9.1-12.4); NEUTROPHILS ABSOLUTE AUTO 2.66 K/mm3 (1.96-9.15); NEUTROPHILS PERCENT AUTO 53 % (41-73); Platelet Count 222 K/mm3 (150-400); RDW Coefficient Variation 14.2 % (11.7-14.2); RDW Standard Deviation 47.9 fL (35.1-46.3); Red Blood Cell Count 3.12 M/mm3 (4.30-5.90); White Blood Cell Count 5.07 K/mm3 (4.00-11.30)
[2020-02-13 05:09] LABS: Albumin, Blood 2.3 g/dL (3.4-5.0); Anion Gap 6 mmol/L (6-16); Blood Urea Nitrogen 30 mg/dL (8-24); Bun/Creatinine Ratio 20.7 (12.0-20.0); CO2, Blood 23 mmol/L (21-32); Calcium, Blood 8.4 mg/dL (8.5-10.1); Chloride, Blood 111 mmol/L (98-108); Creatinine, Blood 1.45 mg/dL (0.60-1.20); Glomerular Filtration Rate 51 (60-); Glucose, Blood 96 mg/dL (70-99); Phosphorus, Blood 3.4 mg/dL (2.5-4.9); Potassium, Blood 4.5 mmol/L (3.5-5.5); Sodium, Blood 140 mmol/L (136-145)
--- NOTE | 2020-02-13 18:34 | NUR ---
SHIFT SUMMARY PATIENT UP TO CHAIR AND WORKED WITH PT TODAY. PO PAIN CAPACITY PLANNING ENGINEER PER ORDER. EATING WELL. USING URINAL, INCONTINENT AT TIMES. VSS. R HIP DRESSING D&I. NO ACUTE CHANGES.
--- NOTE | 2020-02-14 04:56 | NUR ---
SHIFT SUMMARY POD#8. AAOX4. DISCOMFORT CONTROLLED WITH 1 NORCO X2 THIS SHIFT. NO NAUSEA/EMESIS. DRESSING TO RIGHT HIP C/D/I. PPP, DENIES N/T BLE, MOVES TOES WELL. WEAKNESS TO ALL EXTREMITIES, NO ACUTE CHANGE PER PT PT IS WHEELCHAIR BOUND AT BASELINE. GOOD PO INTAKE + OUTPUT. INCONTINENT OF URINE AT TIMES, ATTENDS + LINENS CHANGED PRN. MEPILEX TO LEFT HIP FOR WOUND C/D/I. PT RESTING WELL AT THIS TIME WITH CALL LIGHT IN REACH.
--- NOTE | 2020-02-14 07:34 | NUR ---
DR MAYORGATRATE RECENTLY IN TO SEE PT.
--- NOTE | 2020-02-14 16:54 | NUR ---
SHIFT SUMMARY PT EATING AND DRINKING, VOIDING. PT ATTENDS CHANGED PRN. PT WORKED WITH THERAPY AND BEEN UP TO CHAIR. PT WITH TAB ALARM IN PLACE. PT ARMANDO ASSISTED WITH ADL'S PRN. DR MAYORGATRATE TO SEE PT THIS AM. PT BEEN REPOSITIONED MULT TIMES TODAY.
--- NOTE | 2020-02-15 04:57 | NUR ---
SHIFT SUMMARY POD#9. AAOX4. PT RESTED WELL T/O NIGHT. DISCOMFORT CONTROLLED WITH PAIN PILL. NO NAUSEA/EMESIS. DRESSING TO RIGHT HIP C/D/I. DRESSING TO LEFT LATERAL HIP C/D/I. PT REPOSITIONS SELF WELL IN BED, NEEDS ENCOURAGEMENT AT TIMES. INCONTINENT IN ATTENDS. NO ACUTE CHANGES OVER NIGHT. PT CURRENTLY RESTING WITH CALL LIGHT IN REACH.
[2020-02-15 06:06] LABS: Hematocrit 30.6 % (37.0-53.0); Hemoglobin 9.9 g/dL (13.5-17.5); Mean Corpuscular HGB 30.1 pg (26.0-34.0); Mean Corpuscular HGB Conc 32.4 g/dL (31.5-36.5); Mean Corpuscular Volume 93 fL (80-100); Mean Platelet Volume 10.5 fL (9.1-12.4); Platelet Count 233 K/mm3 (150-400); RDW Coefficient Variation 14.2 % (11.7-14.2); RDW Standard Deviation 48.4 fL (35.1-46.3); Red Blood Cell Count 3.29 M/mm3 (4.30-5.90); White Blood Cell Count 4.98 K/mm3 (4.00-11.30)
[2020-02-15 06:22] LABS: Albumin, Blood 2.4 g/dL (3.4-5.0); Anion Gap 5 mmol/L (6-16); Blood Urea Nitrogen 34 mg/dL (8-24); Bun/Creatinine Ratio 27.2 (12.0-20.0); CO2, Blood 24 mmol/L (21-32); Chloride, Blood 110 mmol/L (98-108); Creatinine, Blood 1.25 mg/dL (0.60-1.20); Glomerular Filtration Rate >60 (60-); Glucose, Blood 96 mg/dL (70-99); Phosphorus, Blood 3.3 mg/dL (2.5-4.9); Potassium, Blood 4.6 mmol/L (3.5-5.5); Sodium, Blood 139 mmol/L (136-145)
--- NOTE | 2020-02-15 16:25 | NUR ---
Shift summary Patient is a 2 person assist to the recliner chair. Pain controlled with [place]. Patient tolerating regular diet. Dressings CDI. Patient uses call light appropiately. VSS. Call light within patient reach.
--- NOTE | 2020-02-16 04:19 | NUR ---
SHIFT SUMMARY POD#10. AAOX4. DISCOMFORT CONTROLLED WITH 1 NORCO X2 THIS SHIFT. NO NAUSEA/EMESIS. DRESSING TO RIGHT HIP C/D/I. MEPILEX TO LEFT HIP C/D/I. PT REPOSITIONS SELF WELL IN BED, NEEDS ENCOURAGEMENT AT TIMES. INCONTINENT IN ATTENDS. GOOD PO INTAKE + OUTPUT. PT RESTING WELL THIS AM WITH CALL LIGHT IN REACH. AWAITING SNF PLACEMENT.
--- NOTE | 2020-02-16 17:53 | NUR ---
SHIFT SUMMARY PAIN HAS BEEN MANAGED WITH NORCO THIS SHIFT. PT IS A 1-2 PERSON MAX ASSIST FOR TRANSFERS. PT IS STILL WAITING FOR PLACEMENT. PT IS EXPECTING A PHONE CONVERSATION TO RENEW HIS SOCIAL SECURITY BENEFITS. VSS. WILL MONITOR UNTIL REPORT TO ONCOMING RN.
--- NOTE | 2020-02-17 04:18 | NUR ---
SHIFT SUMMARY AA0X4, PT DENIES PAIN DURING SHIFT. REPOSITIONED PT T/O SHIFT. HE MOVES SELF BACK TO LEFT HIP SHORTLY AFTER. PT FREQUENTLY REMOVING DEPENDS. INC OF BLADDER DURING SHIFT. DRESSINGS REMAIN CDI. NO DRAINAGE NOTED. PLAN TO CONTINUE AWAITING PLACEMENT FOR PT.
--- NOTE | 2020-02-17 18:21 | NUR ---
SHIFT SUMMARY POD11. PT IS HERE WAITING FOR PLACEMENT. A PHYSICAL THERAPIST CAME IN TODAY FROM THE ME TO ASSIST PT IN A PHONE CALL WITH SOCIAL SECURITY TO REINSTATE MEDICARE BENEFITS. DURING BED BATH, WE CHANGED HIS SURG DRESSING. WOUND AND INC APPEARED HEALING AND DRY. PT C/O PAIN AFTER ADLS, 01/25. MANAGED W/ PAIN MED (NORCO). HE USES URINAL, ADVISE TO USE CALL LIGHT FOR ASSISTANCE TO AVOID URINE LEAKING ON BED.
--- NOTE | 2020-02-18 05:23 | NUR ---
SHIFT SUMMARY NO ACUTE CHANGES THIS SHIFT. AQUACEL TO RIGHT HIP APPEARS CDI. MEPILEX TO LEFT HIP AND COCCYX ALSO APPEAR CDI. REPORTS PAIN AT CHARO T/O SHIFT. USES URINAL, REQUIRES FREQUENT ASSISTANCE TO PREVENT LEAKAGE ON SELF OR BEDDING. HX OF BLADDER INCONT. REPOSITIONED OFTEN, PT FREQUENTLY REPOSITIONS SELF TO LEFT SIDE. AWAITING PLACEMENT. PT IS CURRENTLY RESTING IN BED WITH CALL LIGHT IN HAND WHILE WATCHING TV. WILL CONT TO MONITOR AND GIVE REPORT TO ONCOMING RN.
--- NOTE | 2020-02-18 19:44 | NUR ---
SHIFT SUMMARY PT A&OX4, VSS, UP TO CHAIR TODAY WITH PHYSICAL THERAPY, 3 PP BED/CHAIR TRANSFER AT SHIFT CHANGE. CHARO PO, DENIES N&V. PAIN MANAGED WITH 5 MG NORCO. VOIDING WELL USING URINAL. REPORT PROVIDED TO DEE BAÑUELOS.
--- NOTE | 2020-02-19 03:42 | NUR ---
SHIFT SUMMARY NO ACUTE CHANGES THIS SHIFT. AQUACEL TO RIGHT HIP AND MEPILEX TO COCCYX/ LEFT HIP CDI. ABLE TO ADJUST SELF IN BED. USING URINAL WITH INCONT VOIDS. CHARO PO INTAKE. APPEARS TO HAVE SLEPT T/O MOST OF SHIFT. PT IS CURRENTLY RESTING IN BED WITH CALL LIGHT IN REACH. WILL CONT TO MONITOR AND GIVE REPORT TO ONCOMING RN.
--- NOTE | 2020-02-19 18:07 | NUR ---
SHIFT SUMMARY PATIENT WORKED WITH PT/OT TODAY WITH GOOD PROGRESS PER STAFF. MEDICATED X 2 FOR R HIP PAIN. R HIP AND MEPILEX DRESSINGS C/D/I. TOLERAITNG PO. VOIDING. NO ACUTE CHANGES. AWAITING PLACEMENT.
--- NOTE | 2020-02-20 03:47 | NUR ---
SHIFT SUMMARY PT HAS BEEN A/O X3, USING CALL LIGHT APPROPRIATELY. PT HAS BEEN REPOSITIONED SEVERAL TIMES DURING THE SHIFT. USES URINAL IND TO VOID. PT HAS BEEN IN PLEASANT MOOD DURING THE NIGHT AND WAS ABLE TO GET SOME REST. DRESSING TO R HIP CDI. PAIN MANAGED WITH PO PAIN MED PER ORDERS. NO ACUTE CHANGES OVERNIGHT.
--- NOTE | 2020-02-20 18:05 | NUR ---
SHIFT SUMMARY NO ACUTE CHANGES THIS SHIFT. UP TO CHAIR TODAY. MEDICATED FOR R HIP PAIN X 2. TOLERATING PO. PRUNE JUICE GIVEN FOR NO BM X 2 DAYS. VOIDING. R HIP DRESSING AND COCCYX DRESSINGS D&I. WILL REPORT TO AYANA BAÑUELOS.
--- NOTE | 2020-02-21 17:36 | NUR ---
SHIFT SUMMARY PT AO3 WITH NO ACUTE CHANGES. PT HAD BM THIS AM. HE HAS C/O PAIN ON RLE, MEDICATED W/ NORCO AT 1647. 12/25 PAIN DENIES N/T. PER DR LAWRENCE, MEDICARE HAS BEEN APPROVED BUT STILL WAITING ON PLACEMENT. PT ALSO DENIES N/V, HAS GOOD APPETITE. DRESSINGS ARE CDI.
--- NOTE | 2020-02-22 17:14 | NUR ---
SHIFT SUMMARY PT HAS GOOD APPETITE. HE C/O PAIN INTERITTENTLY, PAIN MED GIVEN PER MD ORDER. HE IS STILL WAITING FOR PLACEMENT. NO ACUTE CHANGES. HE HAD 1 BM TODAY.
--- NOTE | 2020-02-23 06:33 | NUR ---
SUMMARY PT IN NO ACUTE DISTRESS TONIGHT. POTENTIAL TRANSFER TO SNF THIS WEEK.
--- NOTE | 2020-02-23 16:27 | NUR ---
Shift summary No acute changes this shift. VSS. Pain controlled with [place]. Patient worked with physical therapy this shift. Patient tolerating PO intake. Awaiting discharge plan. Call light within patient reach.
--- NOTE | 2020-02-24 04:09 | NUR ---
SHIFT SUMMARY NO ACUTE CHANGES THIS SHIFT. ATTENDS CHANGED PRN R/T PT ATTEMPTING TO USE URINAL IND. MEDICATED FOR PAIN X1 WITH 1 TAB NORCO. PT ABLE TO REPOSITION SELF IN BED, REQUIRES ASSISTANCE WITH BOOSTING. PT APPEARS TO BE RESTING COMFORTABLY IN BED WITH EYES CLOSED AND CALL LIGH IN REACH. AWAITING PLACEMENT WILL CONT TO MONITOR AND GIVE REPORT TO ONCOMING RN.
[2020-02-24 05:21] LABS: Hematocrit 29.5 % (37.0-53.0); Hemoglobin 9.4 g/dL (13.5-17.5); Mean Corpuscular HGB 29.8 pg (26.0-34.0); Mean Corpuscular HGB Conc 31.9 g/dL (31.5-36.5); Mean Corpuscular Volume 94 fL (80-100); Platelet Count 214 K/mm3 (150-400); RDW Coefficient Variation 13.6 % (11.7-14.2); RDW Standard Deviation 46.6 fL (35.1-46.3); Red Blood Cell Count 3.15 M/mm3 (4.30-5.90); White Blood Cell Count 4.94 K/mm3 (4.00-11.30)
[2020-02-24 05:45] LABS: Bun/Creatinine Ratio 34.3 (12.0-20.0); Creatinine, Blood 1.4 mg/dL (0.60-1.20); Potassium, Blood 5.6 mmol/L (3.5-5.5)
--- NOTE | 2020-02-24 14:34 | NUR ---
REPORT GIVEN TO JOSE. DISCHARGE PACKET PREPARED BY CARE MANAGEMENT. MANAGEMENT REP SCHEDULED APPROX. AT 1600.
== END 2020-02-24 16:57 | DRG 480 ==
LOC: ER 10:15 → SURS 13:52 → ERHOLD 13:52 → SURS 16:29
PROVIDERS: Emergency Medicine; Family Medicine; Nurse Practitioner Acute Care; Orthopaedic Surgery; ADMIT Internal Medicine
PROC: 0QS634Z Reposition Right Upper Femur with Internal Fixation Device, Percutaneous Approach (ICD-10-PCS; principal; 2020-02-06 15:15)
DX: S72.141A Displaced intertrochanteric fracture of right femur, initial encounter for closed fracture (principal); E43 Unspecified severe protein-calorie malnutrition; Z68.1 Body mass index [BMI] 19.9 or less, adult; G93.40 Encephalopathy, unspecified; N17.9 Acute kidney failure, unspecified; Z20.828 Contact with and (suspected) exposure to other viral communicable diseases; D63.8 Anemia in other chronic diseases classified elsewhere; E83.39 Other disorders of phosphorus metabolism; F03.90 Unspecified dementia, unspecified severity, without behavioral disturbance, psychotic disturbance, mood disturbance, and anxiety; I25.10 Atherosclerotic heart disease of native coronary artery without angina pectoris; K72.90 Hepatic failure, unspecified without coma; I12.9 Hypertensive chronic kidney disease with stage 1 through stage 4 chronic kidney disease, or unspecified chronic kidney disease; Z87.891 Personal history of nicotine dependence; Z95.1 Presence of aortocoronary bypass graft; Z99.3 Dependence on wheelchair; N18.3 Chronic kidney disease, stage 3 (moderate); L89.152 Pressure ulcer of sacral region, stage 2; Z66 Do not resuscitate
CPT/HCPCS: 36415; 73502; 73700; 80048; 80053; 80069; 82140; 85025; 85027; 85610; 93005; 93010; 96360; 96361; 97110; 97112; 97162; 97166; 97530; 97535; 99284-25; A9270-GY; C1713; C1769; J0690; J1100; J1650; J1885; J2250; J2405; J2704; J3010; J3480; J7030; J7050; J7060; J7120; U0002

== ENCOUNTER 2020-06-23 08:09 | Emergency (ER) | payer OTHER, MEDICARE ==
[~2020-06-23] VITALS: Ht 180.3 cm; Wt 80.7 kg
[~2020-06-23 08:09] MED LIST changes: +ALLO100 PO; +Acetaminophen325 M1 PO; +B-1100 M1 PO; +CALCITRATE200 M1 PO; +DOCU100 PO; +FOLI1 PO; +GUAI600T33 PO; +LACT PO; +LOSARTAN POTAS100 M1 PO; +MELA3 PO; +METO50ER PO; +RIFA550T2 PO; +SENN187 PO; +TAMS.4ER PO; +Vitamin B-121000 MCG PO; +Vitamin D2000 UNIT PO; +ZINC220 PO
[2020-06-23] MEDS ORDERED: Monodox100 MG PO (09:41)
== END 2020-06-23 11:37 | disposition home or self-care (01) ==
LOC: ER 08:09
DX: S00.11XA Contusion of right eyelid and periocular area, initial encounter (principal); J01.90 Acute sinusitis, unspecified; B96.89 Other specified bacterial agents as the cause of diseases classified elsewhere; I10 Essential (primary) hypertension; Z95.1 Presence of aortocoronary bypass graft; Z79.899 Other long term (current) drug therapy; Z87.891 Personal history of nicotine dependence; W01.10XA Fall on same level from slipping, tripping and stumbling with subsequent striking against unspecified object, initial encounter
CPT/HCPCS: 70450; 72125; 99284-25

== ENCOUNTER 2020-08-28 13:14 | Emergency (ER) | payer OTHER, MEDICARE ==
[~2020-08-28] VITALS: Ht 180.3 cm; Wt 77.1 kg
[~2020-08-28 13:14] MED LIST changes: +Monodox100 MG PO
[2020-08-28] MEDS ORDERED: CEPH500 PO (13:43)
[2020-08-28] MEDS ORDERED: Mupirocin22 GM TOP (13:43)
[2020-08-28] MEDS ORDERED: Bactrim Ds Tab1 EACH PO (13:43)
== END 2020-08-28 14:47 | disposition home or self-care (01) ==
LOC: ER 13:14
DX: H00.031 Abscess of right upper eyelid (principal); I10 Essential (primary) hypertension; Z95.1 Presence of aortocoronary bypass graft; Z79.899 Other long term (current) drug therapy; Z87.891 Personal history of nicotine dependence
CPT/HCPCS: 99283; A9270

== ENCOUNTER 2021-01-05 17:52 | Inpatient (IN) | payer OTHER, MEDICARE ==
[~2021-01-05] VITALS: Ht 172.7 cm; Wt 90.7 kg
[~2021-01-05 17:52] MED LIST changes: +Bactrim Ds Tab1 EACH PO; +CEPH500 PO; +Mupirocin22 GM TOP
[2021-01-05 18:10] LABS: BASOPHILS ABSOLUTE AUTO 0.03 K/mm3 (0.00-0.23); BASOPHILS PERCENT AUTO 1 % (0-2); EOSINOPHILS ABSOLUTE AUTO 0.66 K/mm3 (0.00-0.68); EOSINOPHILS PERCENT AUTO 11 % (0-6); Hematocrit 30.5 % (37.0-53.0); Hemoglobin 9.7 g/dL (13.5-17.5); IMMATURE GRAN ABSOLUTE AUTO 0.01 K/mm3 (0.00-0.10); IMMATURE GRAN PERCENT AUTO 0 % (0-1); LYMPHOCYTES ABSOLUTE AUTO 1.65 K/mm3 (0.84-5.20); LYMPHOCYTES PERCENT AUTO 28 % (21-46); MONOCYTES ABSOLUTE AUTO 0.38 K/mm3 (0.16-1.47); MONOCYTES PERCENT AUTO 7 % (4-13); Mean Corpuscular HGB Conc 31.8 g/dL (31.5-36.5); Mean Corpuscular Volume 97 fL (80-100); Mean Platelet Volume 11.3 fL (9.1-12.4); NEUTROPHILS ABSOLUTE AUTO 3.16 K/mm3 (1.96-9.15); NEUTROPHILS PERCENT AUTO 54 % (41-73); Platelet Count 190 K/mm3 (150-400); RDW Coefficient Variation 15.6 % (11.7-14.2); RDW Standard Deviation 55.3 fL (35.1-46.3); Red Blood Cell Count 3.13 M/mm3 (4.30-5.90); White Blood Cell Count 5.89 K/mm3 (4.00-11.30)
[2021-01-05 18:46] LABS: Alanine Aminotransfer (ALT/SGP 17 U/L (12-78); Albumin, Blood 2.4 g/dL (3.4-5.0); Albumin/Globulin Ratio 0.5 (0.8-1.8); Alk Phos 123 U/L (50-136); Anion Gap 6 mmol/L (6-16); Aspartate Aminotrans (AST/SGOT 21 U/L (12-37); Bilirubin, Total 0.3 mg/dL (0.1-1.0); Blood Urea Nitrogen 34 mg/dL (8-24); Bun/Creatinine Ratio 22.7 (12.0-20.0); CO2, Blood 22 mmol/L (21-32); Calcium, Blood 8.5 mg/dL (8.5-10.1); Chloride, Blood 120 mmol/L (98-108); Globulin, Blood 5.2 g/dL (2.2-4.0); Glomerular Filtration Rate 46 (60-); Glucose, Blood 152 mg/dL (70-99); Potassium, Blood 3.8 mmol/L (3.5-5.5); Sodium, Blood 148 mmol/L (136-145); Total Protein, Blood 7.6 g/dL (6.4-8.2); Troponin I <0.015 ng/mL (0.000-0.040)
[2021-01-05] MEDS ORDERED: Aspir 8181 MG PO (19:38)
[2021-01-05] MEDS ORDERED: METO100ER PO (19:39)
[2021-01-05] MEDS ORDERED: MIRALAX17 GM PO (19:39)
[2021-01-06] MEDS ORDERED: ZINC OXIDE57 GM TOP (01:15)
[2021-01-06] MEDS ORDERED: ZINC220 (01:19)
[2021-01-06 05:18] LABS: BASOPHILS ABSOLUTE AUTO 0.03 K/mm3 (0.00-0.23); BASOPHILS PERCENT AUTO 1 % (0-2); EOSINOPHILS ABSOLUTE AUTO 0.34 K/mm3 (0.00-0.68); EOSINOPHILS PERCENT AUTO 7 % (0-6); Hematocrit 26.1 % (37.0-53.0); Hemoglobin 8.6 g/dL (13.5-17.5); IMMATURE GRAN ABSOLUTE AUTO 0.01 K/mm3 (0.00-0.10); IMMATURE GRAN PERCENT AUTO 0 % (0-1); LYMPHOCYTES ABSOLUTE AUTO 1.09 K/mm3 (0.84-5.20); LYMPHOCYTES PERCENT AUTO 21 % (21-46); MONOCYTES ABSOLUTE AUTO 0.39 K/mm3 (0.16-1.47); MONOCYTES PERCENT AUTO 7 % (4-13); Mean Corpuscular HGB 31.2 pg (26.0-34.0); Mean Corpuscular Volume 95 fL (80-100); Mean Platelet Volume 11.1 fL (9.1-12.4); NEUTROPHILS ABSOLUTE AUTO 3.41 K/mm3 (1.96-9.15); NEUTROPHILS PERCENT AUTO 65 % (41-73); Platelet Count 202 K/mm3 (150-400); RDW Coefficient Variation 15.1 % (11.7-14.2); RDW Standard Deviation 52.6 fL (35.1-46.3); Red Blood Cell Count 2.76 M/mm3 (4.30-5.90); White Blood Cell Count 5.27 K/mm3 (4.00-11.30)
[2021-01-06 05:48] LABS: Albumin, Blood 2.2 g/dL (3.4-5.0); Albumin/Globulin Ratio 0.4 (0.8-1.8); Bilirubin, Total 0.5 mg/dL (0.1-1.0); Calcium, Blood 8.5 mg/dL (8.5-10.1); Creatinine, Blood 1.52 mg/dL (0.60-1.20); Globulin, Blood 4.9 g/dL (2.2-4.0); Potassium, Blood 3.6 mmol/L (3.5-5.5); Total Protein, Blood 7.1 g/dL (6.4-8.2)
--- NOTE | 2021-01-06 06:16 | NUR ---
0615 PT REMOVED TELE AND REFUSES TO PUT IT BACK ON. PROVIDER NOTIFIED.
--- NOTE | 2021-01-06 13:42 | NUR ---
Spoke with Caremanager David and discussed case. Dr Lara reporting family may benefit from discussion regarding goals of care. Pt resting in bed with GRADING SUPERVISOR assisting Pt with eating. Pt is A&OX1. Pt denies pain at this time. Ended visit to allow Pt to continue eating. Called and spoke with Jud at [facility]. Jud reports Pt is a DNR and will fax Palliative Care copy of POLST. Jud reports at baseline Pt is orientated and able to make his own decisions. She reports Pt has been making choices and decisions that are questionable lately. Pt has not been getting out of bed for quite some time. Pt requires assistance with bathing, dressing, transfers, and is incontinent of bowel and bladder. Pt is able to feed himself at baseline. Jud reports plan to have social services designee assess Pt for higher level of care. Inquired about any next of kin with Jud reporting only contact information is for Marie Kim who is listed as someone who handles Pt's bills and Daphne who is a caregiver for Pt in the past. Called and left a message with both Marie Kim and Daphne Ponce with request for a return phone call. [facility]ed [facility] a request for copy of advanced directive. Spoke with Dr Lara and relayed staff at [facility] report of Pt being a DNR. Changed Pt's code status to DNR per V/O from Dr Lara. Palliative Care will continue to attempt to reach potential decision makers and will make supportive visits.
--- NOTE | 2021-01-06 15:28 | NUR ---
Ethics consultation service provided. Clarification sought regarding the procedural and legal propriety of forgoing aggressive clinical measures and making a hospice election on behalf of the principal, contigent on the treatment wishes expressed in the principals advance care planning instruments, without collecting input from the Healthcare Manager Process (HCR) listed in his directive. Chart notes reviewed, conversations facilitated with alves stakeholders, and ACPI's examined. Predicated on findings from the aforementioned exercise, it is resolved that we are ethically bound to submit to the medical preferences stipulated and delimited in the POLST and the Advance Directive. To exceed the standards of care contained therein would be an assault on the dignity of the patient and constitute overtreatment. Despite the conspicuous nature of the principals wishes, out of common decency and respect, a good morris effort should still be made to notify the HCR of the principals unfortunate condition and impending demise. Thank you for this consult. Sidney Billingsley Th.D.
--- NOTE | 2021-01-06 15:44 | NUR ---
Case Conference Note Received fax from [facility] with Pt's POLST and Advanced Directive. Pt's wishes on POLST form are DNR and Comfort Care Only. Pt's Advanced Directive lists his ex Amira as healthcare professional healthcare representative. No phone number listed just last known address. Spoke with Pt's friend Amanda Ponce who reports when she was caring for Pt she attempted several times to locate and contact Pt's ex with no success. Daphne reports Pt has been showing significant decline in the recent past with care needs increasing. Daphne reports Pt's team at the [facility], staff at [facility], and Pt's [employer] casemanager are in the process of assessing him for a higher level of care. Discussed POLST form with Daphne appearing to be in agreement that Pt should focus on just comfort. Spoke with Sidney Billingsley from Ethics and discussed case. Sidney recommends follwoing Pt's wishes listed on POLST form. Please see Sidney Billingsley's note for further detail. Spoke with Dr Lara and discussed case. Placed comfort care order, comfort care order set, and D/C maintenance medications per V/O from Dr Lara. Palliative Care will remain available for symptom management.
--- NOTE | 2021-01-06 16:58 | NUR ---
SHIFT SUMMARY PT IS AO TO SELF WITH INCREASING FATIGUE. PT DENIES PAIN, N/V. PT EXHIBITS SOB WITH EXERTION. PT WORKED WITH PT/OT. APPETITE IS MODERATE. PT DID NOT HAVE VISITORS THIS SHIFT. PT HAD AN ECHO THIS AM. PT TRANSITIONED TO COMFORT CARE THIS SHIFT PER POLST AND DIRECTIVE WISHES. PT IS IN BED, CALL LIGHT IN REACH, BED IN LOW POSITION.
--- NOTE | 2021-01-07 04:05 | NUR ---
SHIFT SUMMARY A/O TO SELF AND PLACE. PT ANXIOUS DURING BEGINNING OF SHIFT, MEDICATED PER EMAR. APPEARED TO SLEEP T/O THE NIGHT. ORAL CARE AND Q2 TURNS PRN. NO ACUTE CHANGES AT THIS TIME. BED IN LOWEST POSITION WITH CALL LIGHT IN REACH. WILL CONTINUE TO MONITOR AND REPORT TO ONCOMING RN.
--- NOTE | 2021-01-07 09:00 | NUR ---
Pt resting in bed upon arrival. Pt is A&OX1, denies pain, and dyspnea at this time. Pt appears comfortable with no S/S of distress at this time. Spoke with Primary RN Jo Ann and discussed case. No concerns reported at this time. Palliative Care will remain available.
--- NOTE | 2021-01-07 17:08 | NUR ---
SHIFT SUMMARY PT IS AO TO SELF WITH INTERMITTENT CONFUSION. PT DENIES PAIN, N/V, SOB. PT REMAINS ON BEDREST DUE TO W/C BOUND AT BASELINE. PT APPETITE IS POOR. NO PROCEDURES DONE THIS SHIFT. PT REMAINS INCONTINENT OF URINE. PT DID NOT HAVE VISITORS THIS SHIFT. PLAN IS FOR PLACEMENT UPON DC. PT IS IN BED, CALL LIGHT IN REACH, LOW POSITION WITH ALARM ON.
--- NOTE | 2021-01-08 06:08 | NUR ---
SHIFT SUMMARY PT ON COMFORT CARE, A/O ONLY TO SELF, COOPERATIVE c ALL NURSING CARE, DENIES PAIN, DID WELL c MEDS IN APPLE SAUCE, 2 INCONTINENT VOIDS, SOME REDNESS IN GROIN AREA, POWDER AND BARRIOR CREAM APPLIED. NO ACUTE EVENTS THIS SHIFT. CALL LIGHT IN REACH, WILL CTM AND REPORT TO DAY RN.
--- NOTE | 2021-01-08 09:55 | NUR ---
Comfort care visit Met with Lucas this morning. He was recently changed and turned and is watching TV. He states that he is comfortable and has no complaints at this time. He requested pepsi, which was provided to him. He smiles easily and interacts with staff. CM working on safe discharge plan for hospice care. PC to continue to follow.
--- NOTE | 2021-01-09 05:44 | NUR ---
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 DENIED PAIN AND SOB. PT IS INCONTIENT TO BOWEL AND BLADDER. Q2 REPOSITIONING PROVIDED, PT'S LEGS AND ARMS ARE STIFF AND CONTRACTED. PT GETS SOB DURING REPOSITIONING, THIS RESOLVES RIGHT AFTER AND PT CONTINUES TO GO BACK TO SLEEP. NO ACUTE CHANGES. BED ALARM ON, CALL LIGHT WITHIN REACH, WILL CONTINUE TO MONITOR.
--- NOTE | 2021-01-09 13:02 | NUR ---
Comfort care visit Lucas is sleeping this afternoon during my visit to check in on him. Spoke with nursing who reports pt has been complaining of his "legs hurting all the time." Has been medicated for pain and anxiety and he looks comfortable at this time. Nursing reports he slept well last night. Resp even and unlabored at present. Will continue to assist with symptom management and make therapeutic visits prn.
--- NOTE | 2021-01-10 04:32 | NUR ---
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 DENIED PAIN. NO MOANS PRESENT. REPOSITIONED THROUGHOUT THE NIGHT. INCONTIENT, ATTENDS IN PLACE. NO SOB PRESENT. CCOMFORT MEASURES PROVIDED. CALL LIGHT WIITHIN REACH, BED ALARM ON FOR SAFETY, WILL CONTINUE TO MONITOR.
--- NOTE | 2021-01-10 09:34 | NUR ---
Comfort Care Visit Pt resting in bed and is pleasantly confused. Pt's speach is difficult to understand as he tends to mumble this AM. Pt appears comfortable with no S/S of distress at this time. Mild wet respirations noted. Spoke with Bedside RN Angi and discussed case. PPS 30% FAST 7C ADLs 6/6 Palliative Care will remain available.
[2021-01-10] MEDS ORDERED: ATROPINE SULFATE2 M1 SL (13:21)
[2021-01-10] MEDS ORDERED: HALO2 PO (13:22)
[2021-01-10] MEDS ORDERED: MORP20L SL (13:22)
[2021-01-10] MEDS ORDERED: Ativan1 MG PO (13:22)
[2021-01-10] MEDS ORDERED: ONDA4ODT MM (13:23)
[2021-01-10] MEDS ORDERED: TRANSDERM-SCOP1 EAC6 TOP (13:23)
--- NOTE | 2021-01-10 13:30 | NUR ---
PATIENT D/C'D TO [facility] VIA [facility]. DC PACKET GIVEN TO AUTOCAD OPERATOR. PATIENT DENIES ANY FURTHER QUESTIONS OR CONCERNS.
== END 2021-01-10 13:36 | disposition hospice, home (50) | DRG 177 ==
LOC: ER 17:52 → MEDS 19:29
PROVIDERS: Emergency Medicine; ADMIT Internal Medicine
PROC: 5A09357 Assistance with Respiratory Ventilation, Less than 24 Consecutive Hours, Continuous Positive Airway Pressure (ICD-10-PCS; principal; 2021-01-05)
DX: J69.0 Pneumonitis due to inhalation of food and vomit (principal); J96.01 Acute respiratory failure with hypoxia; I13.0 Hypertensive heart and chronic kidney disease with heart failure and stage 1 through stage 4 chronic kidney disease, or unspecified chronic kidney disease; I25.10 Atherosclerotic heart disease of native coronary artery without angina pectoris; Z51.5 Encounter for palliative care; N18.9 Chronic kidney disease, unspecified; Z66 Do not resuscitate; D63.1 Anemia in chronic kidney disease; M10.9 Gout, unspecified; N40.0 Benign prostatic hyperplasia without lower urinary tract symptoms; E88.09 Other disorders of plasma-protein metabolism, not elsewhere classified; Z87.891 Personal history of nicotine dependence; Z95.1 Presence of aortocoronary bypass graft; Z98.890 Other specified postprocedural states; Z79.899 Other long term (current) drug therapy; Z74.01 Bed confinement status
CPT/HCPCS: 36415; 71045; 80053; 83880; 84484; 85025; 92610; 93005; 93010; 93306; 94640; 94660; 94760; 99285-25; A9270; J0295; J1940; J2930; J7040

== ENCOUNTER 2021-02-13 10:51 | Emergency (ER) | payer OTHER ==
[~2021-02-13] VITALS: Ht 172.7 cm; Wt 79.4 kg
[~2021-02-13 10:51] MED LIST changes: +ATROPINE SULFATE2 M1 SL; +Aspir 8181 MG PO; +Ativan1 MG PO; +HALO2 PO; +METO100ER PO; +MIRALAX17 GM PO; +MORP20L SL; +ONDA4ODT MM; +TRANSDERM-SCOP1 EAC6 TOP; +ZINC OXIDE57 GM TOP; +ZINC220
== END 2021-02-13 12:18 ==
LOC: ER 10:51
DX: M79.672 Pain in left foot (principal); M79.671 Pain in right foot; R60.0 Localized edema; Z51.5 Encounter for palliative care; Z66 Do not resuscitate; F03.90 Unspecified dementia, unspecified severity, without behavioral disturbance, psychotic disturbance, mood disturbance, and anxiety; I12.9 Hypertensive chronic kidney disease with stage 1 through stage 4 chronic kidney disease, or unspecified chronic kidney disease; N18.9 Chronic kidney disease, unspecified; I25.10 Atherosclerotic heart disease of native coronary artery without angina pectoris; Z79.899 Other long term (current) drug therapy
CPT/HCPCS: 99283; A9270

== ENCOUNTER 2021-04-15 07:03 | Observation (INO) | payer OTHER ==
[~2021-04-15] VITALS: Ht 175.3 cm; Wt 65.8 kg
[~2021-04-15 07:03] MED LIST changes: +BISA10S; +CALCIUM CITRAT200 MG PO; +DULCOLAX400 MG/5 M; +Flomax0.4 MG PO; +HYDR454TO; +IMODIUM A-D2 M1 PO; +METAMUCIL POWD575 GM; +METO100 PO; +NITR.4SL SL; +THERA GESIC; +TRAM50 PO; +Vitamin B-12100 MCG PO
--- NOTE | 2021-04-15 09:20 | NUR ---
ED Palliative Care Consult Spoke with Dr Rosa and discussed case. Pt to the ED and is unresponsive. Pt came to ED yesterday as well and was treated for UTI. Pt's wishes on his POLST is DNR and Comfort Measures Only. Pt was on hospice services and revoked at somepoint in the recent past. Pt lives at [facility]. Pt medical history and comorbidities include: HTN, CAD, CKD, Hepatic Encephalopathy, Chronically Bed Bound, Chronic Anemia, and BPH. Pt in know to this procedure writer from previous hospital stay. Pt resting on gurney upon arrival. Pt is non responsive with respirations on the 30's. No other non verbal indicators of discomfort noted. Pt appears imminent. Called and spoke with Sidney Billingsley from Ethics. Sidney Billingsley confirms the need to follow Pt's wishes outlined on his POLST with comfot care and hospice services being approriate. Called and spoke [facility] Pt's medyeimi Arnett. Plan was for Pt to be transferred today to an adult foster home in [place]. Hope reports speaking with Facility RN and facility is agreeable to accept Pt back as long as Pt is fully admitted onto hospice services. Will continue to work with [facility] to determine plan of care. PPS 10%
[2021-04-15] MEDS ORDERED: ZINC220 PO (12:40)
[2021-04-15] MEDS ORDERED: B-1100 M1 PO (12:41)
--- NOTE | 2021-04-15 17:04 | NUR ---
SHIFT SUMMARY PATIENT ADMITTED TO THE FLOOR MID-SHIFT. PATIENT NON-RESPONSIVE UPON ARRIVAL. PATIENT MADE COMFORTABLE IN BED, ADMISSION ASSESMENT COMPLETED. PATIENT ADMITTED ON COMFORT CARE WITH PLANS TO RETURN TO [facility]. PATIENT CURRENTLY LYING IN BED, CONTINUES TO BE NON-RESPONSIVE.
--- NOTE | 2021-04-16 00:40 | NUR ---
UPDATE ROUNDED ON PATIENT AT 0025, PT FOUND TO HAVE NO APICAL PULSE. PT HAD BEEN NON RESPONSIVE SINCE ADMISSION PER RN REPORT. PT NON RESPONSIVE DURING ALL PRIOR ROUNDING AND ASSESSMENTS. THE BEST RESPONSE WAS EYES OPENING DURING SHIFT REPORT BUT PT NOT ABLE TO TRACK MOVEMENT AT THAT TIME. TOD 0025. PORCELAIN ENAMEL REPAIRER NOTIFIED.
--- NOTE | 2021-04-16 02:19 | NUR ---
PAPER SAMPLE CLERK PT PICKED UP BY GUILLAUME MELARA OF [facility] AROUND 211.
== END 2021-04-16 00:25 ==
LOC: ER 07:03 → MEDS 07:04
PROVIDERS: ADMIT Internal Medicine
DX: Z51.5 Encounter for palliative care (principal); R41.82 Altered mental status, unspecified; R29.810 Facial weakness; Z66 Do not resuscitate; I12.9 Hypertensive chronic kidney disease with stage 1 through stage 4 chronic kidney disease, or unspecified chronic kidney disease; N18.9 Chronic kidney disease, unspecified; I25.10 Atherosclerotic heart disease of native coronary artery without angina pectoris; Z88.8 Allergy status to other drugs, medicaments and biological substances; Z79.82 Long term (current) use of aspirin; Z79.899 Other long term (current) drug therapy
CPT/HCPCS: 99285; A9270; G0378